=== PATIENT | male | born 1950 | race African-American/Black ===

== ENCOUNTER → 2016-08-31 10:05 | Outpatient (CLI) | payer MEDICARE | END | disposition home or self-care (01) | LOC: D.CT 10:05 | DX: R93.8 Abnormal findings on diagnostic imaging of other specified body structures (principal) ==

== ENCOUNTER 2017-05-29 16:50 | Emergency (ER) | payer MEDICARE ==
[2017-06-15 11:34] VITALS: BMI 22.6
== END 2017-05-29 19:59 | disposition home or self-care (01) ==
LOC: D.ER 16:50
DX: M25.521 Pain in right elbow (principal); M79.604 Pain in right leg

== ENCOUNTER 2017-06-14 20:29 | Inpatient (IN) | payer MEDICARE, MEDICAID ==
[~2017-06-14] VITALS: Ht 180.3 cm; Wt 77.1 kg
[2017-06-14 21:10] LABS: BASOPHILS 0.1 % (0-2); EOSINOPHILS 0.3 % (0-7); HEMOGLOBIN 12.3 g/dL (13.5-17.5); IMMATURE GRANULOCYTES 0.5 % (0-5); LYMPHOCYTES 21.7 % (15-50); MCH 30.1 pg (26.0-34.0); MCHC 34.2 g/dL (31.0-37.0); MEAN PLATELET VOLUME 9.6 fL (7.4-10.4); MONOCYTES 15.6 % (2-11); NEUTROPHILS 61.8 % (40-80); PLATELET COUNT 162 10x3/uL (130-400); RBC 4.09 10x6/uL (4.20-6.10); RDW 14.9 % (11.5-14.5); WBC 14.3 10x3/uL (4.8-10.8)
[2017-06-14 21:32] LABS: ALBUMIN 3.5 g/dL (3.4-5.0); ANION GAP 16.4 mmol/L (8-16); BILIRUBIN - TOTAL 0.33 mg/dL (0.2-1.3); CALCIUM 8.1 mg/dL (8.5-10.1); CARBON DIOXIDE 25.8 mmol/L (21.0-32.0); CREATININE - SERUM 1.1 mg/dL (0.6-1.3); MAGNESIUM - SERUM 1.7 mg/dL (1.8-2.4); POTASSIUM - SERUM 3.2 mmol/L (3.5-5.1); PROTEIN - SERUM 7.8 g/dL (6.4-8.2)
[2017-06-15] VITALS (27 sets, daily range): BP systolic 93–145; BP diastolic 51–94; Ht 180.3 cm; Wt 77.1 kg
[2017-06-15 03:59] LABS: BASOPHILS 0.1 % (0-2); EOSINOPHILS 0.2 % (0-7); HEMATOCRIT 31.8 % (42.0-54.0); HEMOGLOBIN 10.8 g/dL (13.5-17.5); IMMATURE GRANULOCYTES 0.4 % (0-5); LYMPHOCYTES 6.9 % (15-50); MCH 29.5 pg (26.0-34.0); MCV 86.9 fL (80.0-100.0); MEAN PLATELET VOLUME 9.3 fL (7.4-10.4); MONOCYTES 12.1 % (2-11); NEUTROPHILS 80.3 % (40-80); PLATELET COUNT 153 10x3/uL (130-400); RBC 3.66 10x6/uL (4.20-6.10); RDW 14.7 % (11.5-14.5); WBC 15.6 10x3/uL (4.8-10.8)
[2017-06-15 04:14] LABS: ALBUMIN 2.9 g/dL (3.4-5.0); ALKALINE PHOSPHATASE 135 U/L (46-116); ALT (SGPT) 16 U/L (10-68); CALC OSMOLALITY 269 mosm/kg (275-300); CALCIUM 7.7 mg/dL (8.5-10.1); CARBON DIOXIDE 23.3 mmol/L (21.0-32.0); CHLORIDE - SERUM 98 mmol/L (98-107); CREATININE - SERUM 0.9 mg/dL (0.6-1.3); POTASSIUM - SERUM 3.2 mmol/L (3.5-5.1); PROTEIN - SERUM 7.1 g/dL (6.4-8.2); SODIUM 136 mmol/L (136-145); UREA NITROGEN 12 mg/dL (7-18); eGFR NON AFRICAN AMERICAN 90 mL/min (90-120)
[2017-06-15 04:18] LABS: GLUCOSE 69 mg/dL (74-106)
[2017-06-16] VITALS (14 sets, daily range): BP systolic 109–143; BP diastolic 51–100
[2017-06-16 04:07] LABS: BASOPHILS 0.1 % (0-2); EOSINOPHILS 0.5 % (0-7); HEMATOCRIT 30.6 % (42.0-54.0); HEMOGLOBIN 10.4 g/dL (13.5-17.5); IMMATURE GRANULOCYTES 0.5 % (0-5); LYMPHOCYTES 12.9 % (15-50); MCH 29.6 pg (26.0-34.0); MCV 87.2 fL (80.0-100.0); MEAN PLATELET VOLUME 9.4 fL (7.4-10.4); MONOCYTES 7.9 % (2-11); NEUTROPHILS 78.1 % (40-80); PLATELET COUNT 179 10x3/uL (130-400); RBC 3.51 10x6/uL (4.20-6.10); RDW 14.8 % (11.5-14.5)
[2017-06-16 04:10] LABS: WBC 11.1 10x3/uL (4.8-10.8)
[2017-06-16 04:14] LABS: PROTIME 12.8 SECONDS (11.6-15.0)
[2017-06-16 04:19] LABS: ALBUMIN 2.6 g/dL (3.4-5.0); ANION GAP 15.6 mmol/L (8-16); BILIRUBIN - DIRECT 0.11 mg/dL (0.00-0.30); BILIRUBIN - INDIRECT 0.38 mg/dL (0.00-1.00); BILIRUBIN - TOTAL 0.49 mg/dL (0.2-1.3); CALCIUM 8.5 mg/dL (8.5-10.1); CARBON DIOXIDE 23.7 mmol/L (21.0-32.0); CREATININE - SERUM 1.1 mg/dL (0.6-1.3); POTASSIUM - SERUM 3.3 mmol/L (3.5-5.1); PROTEIN - SERUM 6.8 g/dL (6.4-8.2)
[2017-06-17 03:00] VITALS: BP 132/86
[2017-06-17 04:55] LABS: BASOPHILS 0.3 % (0-2); EOSINOPHILS 1.2 % (0-7); HEMATOCRIT 32.1 % (42.0-54.0); HEMOGLOBIN 10.7 g/dL (13.5-17.5); IMMATURE GRANULOCYTES 0.5 % (0-5); LYMPHOCYTES 23.5 % (15-50); MCH 29.4 pg (26.0-34.0); MCHC 33.3 g/dL (31.0-37.0); MCV 88.2 fL (80.0-100.0); MEAN PLATELET VOLUME 9.4 fL (7.4-10.4); MONOCYTES 9.1 % (2-11); NEUTROPHILS 65.4 % (40-80); RBC 3.64 10x6/uL (4.20-6.10); RDW 14.8 % (11.5-14.5)
[2017-06-17 04:59] LABS: PLATELET COUNT 223 10x3/uL (130-400); WBC 7.3 10x3/uL (4.8-10.8)
[2017-06-17 05:06] LABS: CALC OSMOLALITY 280 mosm/kg (275-300); CALCIUM 8.8 mg/dL (8.5-10.1); CARBON DIOXIDE 26.8 mmol/L (21.0-32.0); CHLORIDE - SERUM 104 mmol/L (98-107); POTASSIUM - SERUM 3.6 mmol/L (3.5-5.1); SODIUM 140 mmol/L (136-145); UREA NITROGEN 12 mg/dL (7-18); eGFR NON AFRICAN AMERICAN 80 mL/min (90-120)
[2017-06-17 05:10] LABS: GLUCOSE 141 mg/dL (74-106)
[2017-06-17 07:00] VITALS: BP 140/92
[2017-06-17 11:00] VITALS: BP 126/94
[2017-06-17 16:06] VITALS: BP 136/78
[2017-06-17 20:00] VITALS: BP 141/85
[2017-06-18] VITALS: BP 143/82
[2017-06-18 04:00] VITALS: BP 154/102
[2017-06-18 05:42] LABS: BASOPHILS 0.4 % (0-2); EOSINOPHILS 1.3 % (0-7); HEMOGLOBIN 10.6 g/dL (13.5-17.5); IMMATURE GRANULOCYTES 1.3 % (0-5); LYMPHOCYTES 26.8 % (15-50); MCH 29.4 pg (26.0-34.0); MCHC 33.1 g/dL (31.0-37.0); MCV 88.6 fL (80.0-100.0); MEAN PLATELET VOLUME 9.5 fL (7.4-10.4); MONOCYTES 11.7 % (2-11); NEUTROPHILS 58.5 % (40-80); RBC 3.61 10x6/uL (4.20-6.10); RDW 14.9 % (11.5-14.5); WBC 7.8 10x3/uL (4.8-10.8)
[2017-06-18 05:44] LABS: PLATELET COUNT 293 10x3/uL (130-400)
[2017-06-18 05:56] LABS: CALC OSMOLALITY 279 mosm/kg (275-300); CARBON DIOXIDE 26.3 mmol/L (21.0-32.0); CHLORIDE - SERUM 105 mmol/L (98-107); CREATININE - SERUM 0.9 mg/dL (0.6-1.3); GLUCOSE 99 mg/dL (74-106); SODIUM 140 mmol/L (136-145); UREA NITROGEN 14 mg/dL (7-18); eGFR NON AFRICAN AMERICAN 90 mL/min (90-120)
[2017-06-18 07:00] VITALS: BP 152/88
[2017-06-18 12:48] VITALS: BP 138/78
[2017-06-18 17:31] VITALS: BP 158/88
[2017-06-18 21:30] VITALS: BP 155/88
[2017-06-19] MEDS ORDERED: ULTRAM50 MG PO (04:19)
[2017-06-19] MEDS ORDERED: VOLTAREN75 MG PO (04:20)
[2017-06-19 06:11] VITALS: BP 149/75
[2017-06-19 08:00] VITALS: BP 159/86
[2017-06-19 11:50] VITALS: BP 147/82
== END 2017-06-19 14:39 | disposition home or self-care (01) | DRG 179 ==
LOC: D.ER 20:29 → D.ICU 23:56 → D.M2 06-17 13:16
PROVIDERS: Emergency Medicine; Family Medicine
DX: J69.0 Pneumonitis due to inhalation of food and vomit (principal); F10.129 Alcohol abuse with intoxication, unspecified; Y90.8 Blood alcohol level of 240 mg/100 ml or more; I10 Essential (primary) hypertension; D64.9 Anemia, unspecified; Z87.891 Personal history of nicotine dependence

== ENCOUNTER 2017-11-02 14:18 | Emergency (ER) | payer MEDICARE, MEDICAID ==
[2017-06-15 11:34] VITALS: BMI 22.6
[~2017-11-02 14:18] MED LIST: ULTRAM50 MG PO; VOLTAREN75 MG PO
[2017-11-02 14:54] LABS: HEMOGLOBIN 11.5 g/dL (13.5-17.5); MCH 31.1 pg (26.0-34.0); MCHC 34.8 g/dL (31.0-37.0); MCV 89.2 fL (80.0-100.0); MEAN PLATELET VOLUME 8.2 fL (7.4-10.4); RDW 17.3 % (11.5-14.5); WBC 4.6 10x3/uL (4.8-10.8)
[2017-11-02 14:57] LABS: PLATELET COUNT 208 10x3/uL (130-400)
[2017-11-02 15:08] LABS: INR 1.06 (0.85-1.17); PROTIME 13.4 SECONDS (11.6-15.0)
[2017-11-02 15:27] LABS: ALBUMIN 3.6 g/dL (3.4-5.0); ANION GAP 20.9 mmol/L (8-16); BILIRUBIN - TOTAL 0.17 mg/dL (0.2-1.3); CALCIUM 8.2 mg/dL (8.5-10.1); CARBON DIOXIDE 21.8 mmol/L (21.0-32.0); CREATININE - SERUM 1.1 mg/dL (0.6-1.3); MAGNESIUM - SERUM 1.7 mg/dL (1.8-2.4); POTASSIUM - SERUM 3.7 mmol/L (3.5-5.1); PROTEIN - SERUM 7.7 g/dL (6.4-8.2)
[2017-11-02 15:31] LABS: BASOPHILS 2 % (0-2); EOSINOPHILS 1 % (0-7); LYMPHOCYTES 60 % (15-50); MONOCYTES 1 % (2-11); NEUTROPHILS 34 % (40-80)
[2017-11-02 15:32] LABS: PLATELET ESTIMATE NORMAL; TARGET CELLS 2+
== END 2017-11-03 08:06 | disposition home or self-care (01) ==
LOC: D.ER 14:18
PROVIDERS: Emergency Medicine
DX: F10.10 Alcohol abuse, uncomplicated (principal); F17.200 Nicotine dependence, unspecified, uncomplicated

== ENCOUNTER 2017-11-10 13:29 | Emergency (ER) | payer MEDICARE, MEDICAID ==
[~2017-11-10] VITALS: Ht 180.3 cm; Wt 77.3 kg
[2017-11-10 13:30] VITALS: Ht 180.3 cm; Wt 77.3 kg
[2017-11-10 14:10] LABS: BASOPHILS 0.2 % (0-2); HEMATOCRIT 32.9 % (42.0-54.0); HEMOGLOBIN 11.8 g/dL (13.5-17.5); IMMATURE GRANULOCYTES 0.2 % (0-5); LYMPHOCYTES 31.8 % (15-50); MCH 31.7 pg (26.0-34.0); MCHC 35.9 g/dL (31.0-37.0); MCV 88.4 fL (80.0-100.0); MONOCYTES 8.2 % (2-11); NEUTROPHILS 58.6 % (40-80); RBC 3.72 10x6/uL (4.20-6.10); WBC 5.9 10x3/uL (4.8-10.8)
[2017-11-10 14:11] LABS: PLATELET COUNT 137 10x3/uL (130-400)
[2017-11-10 14:24] LABS: ALBUMIN 3.7 g/dL (3.4-5.0); ALKALINE PHOSPHATASE 149 U/L (46-116); ALT (SGPT) 70 U/L (10-68); CALC OSMOLALITY 277 mosm/kg (275-300); CALCIUM 8.5 mg/dL (8.5-10.1); CARBON DIOXIDE 26.9 mmol/L (21.0-32.0); CHLORIDE - SERUM 102 mmol/L (98-107); POTASSIUM - SERUM 4.1 mmol/L (3.5-5.1); PROTEIN - SERUM 7.7 g/dL (6.4-8.2); SODIUM 140 mmol/L (136-145); UREA NITROGEN 9 mg/dL (7-18); eGFR NON AFRICAN AMERICAN 79 mL/min (90-120)
[2017-11-10 14:26] LABS: GLUCOSE 93 mg/dL (74-106)
[2017-11-10 14:57] LABS: UDS - AMPHET NEGATIVE QUAL (NEGATIVE); UDS - BARB NEGATIVE QUAL (NEGATIVE); UDS - BENZO NEGATIVE QUAL (NEGATIVE); UDS - COCAINE NEGATIVE QUAL (NEGATIVE); UDS - OPIATE NEGATIVE QUAL (NEGATIVE); UDS - PCP NEGATIVE QUAL (NEGATIVE); UDS - THC NEGATIVE QUAL (NEGATIVE)
[2017-11-11 14:00] VITALS: BP 146/92
== END 2017-11-11 15:10 | disposition home or self-care (01) ==
LOC: D.ER 13:29
PROVIDERS: Family Medicine
DX: G40.909 Epilepsy, unspecified, not intractable, without status epilepticus (principal); F10.20 Alcohol dependence, uncomplicated

== ENCOUNTER 2018-01-26 10:27 | Emergency (ER) | payer MEDICARE, MEDICAID ==
[~2018-01-26] VITALS: Ht 180.3 cm; Wt 79.4 kg
[2018-01-26 10:31] VITALS: Ht 180.3 cm; Wt 79.4 kg
[2018-01-26] MEDS ORDERED: VOLTAREN100 GM TOPICAL (11:24)
[2018-01-26] MEDS ORDERED: ULTRAM50 MG PO (11:24)
[2018-01-26 11:58] VITALS: BP 175/96
== END 2018-01-26 12:00 | disposition home or self-care (01) ==
LOC: D.ER 10:27
DX: M25.561 Pain in right knee (principal); R01.1 Cardiac murmur, unspecified; M79.601 Pain in right arm

== ENCOUNTER 2018-02-23 11:44 | Emergency (ER) | payer MEDICARE, MEDICAID ==
[~2018-02-23] VITALS: Ht 180.3 cm; Wt 77.3 kg
[~2018-02-23 11:44] MED LIST changes: +VOLTAREN100 GM TOPICAL
[2018-02-23 12:24] VITALS: Ht 180.3 cm; Wt 77.3 kg
[2018-02-23] MEDS ORDERED: EC-NAPROSYN500 MG PO (13:24)
[2018-02-23 13:54] VITALS: BP 159/93
== END 2018-02-23 13:55 | disposition home or self-care (01) ==
LOC: D.ER 11:44
DX: M79.604 Pain in right leg (principal); G40.909 Epilepsy, unspecified, not intractable, without status epilepticus

== ENCOUNTER 2018-07-29 10:03 | Emergency (ER) | payer MEDICARE, MEDICAID ==
[~2018-07-29] VITALS: Ht 180.3 cm; Wt 81.8 kg
[~2018-07-29 10:03] MED LIST changes: +EC-NAPROSYN500 MG PO
[2018-07-29 10:29] VITALS: BP 186/89; Ht 180.3 cm; Wt 81.8 kg
[2018-07-29] MEDS ORDERED: ULTRAM50 MG PO (13:35)
== END 2018-07-29 16:50 | disposition home or self-care (01) ==
LOC: D.ER 10:03
DX: M79.661 Pain in right lower leg (principal)

== ENCOUNTER 2018-09-23 09:53 | Emergency (ER) | payer MEDICARE, MEDICAID ==
[~2018-09-23] VITALS: Ht 180.3 cm; Wt 77.3 kg
[2018-09-23 10:03] VITALS: BP 157/105; Ht 180.3 cm; Wt 77.3 kg
[2018-09-23] MEDS ORDERED: CLEOCIN HCL300 MG PO (10:31)
== END 2018-09-23 10:51 | disposition home or self-care (01) ==
LOC: D.ER 09:53
DX: T20.27XA Burn of second degree of neck, initial encounter (principal); X08.8XXA Exposure to other specified smoke, fire and flames, initial encounter

== ENCOUNTER 2018-10-29 21:01 | Inpatient (IN) | payer MEDICARE | END 2018-11-03 13:38 | disposition home or self-care (01) | DRG 312 | LOC: D.ER 21:01 → D.M3 23:31 | PROVIDERS: ADMIT Family Medicine | DX: R55 Syncope and collapse (principal); D64.9 Anemia, unspecified; I10 Essential (primary) hypertension; I25.10 Atherosclerotic heart disease of native coronary artery without angina pectoris; K76.0 Fatty (change of) liver, not elsewhere classified; R19.5 Other fecal abnormalities; X30.XXXA Exposure to excessive natural heat, initial encounter; F10.229 Alcohol dependence with intoxication, unspecified; Z87.891 Personal history of nicotine dependence ==

== ENCOUNTER 2019-03-09 10:52 | Emergency (ER) | payer MEDICARE, MEDICAID ==
[~2019-03-09] VITALS: Ht 180.3 cm; Wt 68.2 kg
[~2019-03-09 10:52] MED LIST changes: +ASPIRIN325 MG PO; +CHRONULAC30 ML PO; +CLEOCIN HCL300 MG PO; +PROTONIX40 MG PO
[2019-03-09 10:53] VITALS: Ht 180.3 cm; Wt 68.2 kg
[2019-03-09 11:29] LABS: BASOPHILS 0.2 % (0-2); EOSINOPHILS 0 % (0-7); HEMATOCRIT 35.7 % (42.0-54.0); HEMOGLOBIN 12.1 g/dL (13.5-17.5); IMMATURE GRANULOCYTES 0.2 % (0-5); LYMPHOCYTES 16.3 % (15-50); MCH 30.4 pg (26.0-34.0); MCHC 33.9 g/dL (31.0-37.0); MCV 89.7 fL (80.0-100.0); MEAN PLATELET VOLUME 9.2 fL (7.4-10.4); MONOCYTES 10.4 % (2-11); NEUTROPHILS 72.9 % (40-80); PLATELET COUNT 178 10x3/uL (130-400); RBC 3.98 10x6/uL (4.20-6.10); RDW 15.6 % (11.5-14.5); WBC 5.4 10x3/uL (4.8-10.8)
[2019-03-09 11:43] LABS: ALBUMIN 3.7 g/dL (3.4-5.0); ALKALINE PHOSPHATASE 199 U/L (46-116); ALT (SGPT) 69 U/L (10-68); BILIRUBIN - TOTAL 0.97 mg/dL (0.2-1.3); CALC OSMOLALITY 273 mosm/kg (275-300); CALCIUM 8.9 mg/dL (8.5-10.1); CARBON DIOXIDE 27.6 mmol/L (21.0-32.0); CHLORIDE - SERUM 97 mmol/L (98-107); CREATININE - SERUM 1.2 mg/dL (0.6-1.3); GLUCOSE 120 mg/dL (74-106); POTASSIUM - SERUM 4.9 mmol/L (3.5-5.1); PROTEIN - SERUM 8.3 g/dL (6.4-8.2); SODIUM 137 mmol/L (136-145); UREA NITROGEN 11 mg/dL (7-18); eGFR NON AFRICAN AMERICAN 64 mL/min (90-120)
[2019-03-09 11:48] LABS: MAGNESIUM - SERUM 1.6 mg/dL (1.8-2.4); TROPONIN-I < 0.017 ng/mL (0.000-0.060)
[2019-03-09 12:20] LABS: APPEARANCE CLEAR (CLEAR); BILIRUBIN NEGATIVE (NEGATIVE); COLOR YELLOW (YELLOW); GLUCOSE NEGATIVE (NEGATIVE); KETONE LARGE mg/dL (NEGATIVE); NITRITE NEGATIVE (NEGATIVE); PROTEIN 1+ mg/dL (NEGATIVE); SPECIFIC GRAVITY 1.025 (1.005-1.020); UROBILINOGEN NORMAL (NORMAL)
[2019-03-09 12:21] LABS: BACTERIA FEW /hpf (NEGATIVE); EPITHELIAL CELLS 0-5 /hpf (0-5); RED CELLS - URINE 0-5 /hpf (0-5); WHITE CELLS - URINE 0-5 /hpf (NEGATIVE)
[2019-03-09 12:23] LABS: UDS - AMPHET NEGATIVE QUAL (NEGATIVE); UDS - BARB NEGATIVE QUAL (NEGATIVE); UDS - BENZO NEGATIVE QUAL (NEGATIVE); UDS - COCAINE NEGATIVE QUAL (NEGATIVE); UDS - OPIATE NEGATIVE QUAL (NEGATIVE); UDS - PCP NEGATIVE QUAL (NEGATIVE); UDS - THC NEGATIVE QUAL (NEGATIVE)
[2019-03-09 15:18] VITALS: BP 128/74
== END 2019-03-09 15:19 | disposition home or self-care (01) ==
LOC: D.ER 10:52
PROVIDERS: Emergency Medicine
DX: E46 Unspecified protein-calorie malnutrition (principal); F10.10 Alcohol abuse, uncomplicated; R55 Syncope and collapse

== ENCOUNTER 2019-11-05 14:12 | Inpatient (IN) | payer OTHER, MEDICAID ==
[~2019-11-05] VITALS: Ht 180.3 cm; Wt 90.9 kg
[2019-11-06 03:40] VITALS: Ht 180.3 cm; Wt 90.9 kg
[2019-11-07 17:38] VITALS: BP 160/86
== END 2019-11-07 20:28 | disposition home or self-care (01) | DRG 64 ==
LOC: D.ER 14:12 → D.MS 16:33
PROVIDERS: ADMIT Family Medicine; ATTEND Family Medicine
DX: I63.9 Cerebral infarction, unspecified (principal); R40.2222 Coma scale, best verbal response, incomprehensible words, at arrival to emergency department; N17.9 Acute kidney failure, unspecified; F10.129 Alcohol abuse with intoxication, unspecified; Y90.8 Blood alcohol level of 240 mg/100 ml or more; D64.9 Anemia, unspecified; R40.2363 Coma scale, best motor response, obeys commands, at hospital admission; R40.2143 Coma scale, eyes open, spontaneous, at hospital admission

== ENCOUNTER 2020-01-13 15:57 | Inpatient (IN) | payer MEDICARE, MEDICAID ==
[~2020-01-13] VITALS: Ht 180.3 cm; Wt 72.0 kg
[2020-01-13 16:05] VITALS: Ht 180.3 cm; Wt 72.0 kg
[2020-01-13 16:36] VITALS: BP 139/91
[2020-01-13 16:47] LABS: BASOPHILS 0.1 % (0-2); EOSINOPHILS 0 % (0-7); HEMATOCRIT 41.1 % (42.0-54.0); HEMOGLOBIN 14.1 g/dL (13.5-17.5); IMMATURE GRANULOCYTES 0.3 % (0-5); LYMPHOCYTES 9.7 % (15-50); MCH 30.7 pg (26.0-34.0); MCHC 34.3 g/dL (31.0-37.0); MCV 89.3 fL (80.0-100.0); MONOCYTES 8.4 % (2-11); NEUTROPHILS 81.5 % (40-80); PLATELET COUNT 143 10x3/uL (130-400); RDW 13.2 % (11.5-14.5); WBC 10.2 10x3/uL (4.8-10.8)
[2020-01-13 17:03] LABS: CALC OSMOLALITY 269 mosm/kg (275-300); CALCIUM 9.2 mg/dL (8.5-10.1); CARBON DIOXIDE 27.5 mmol/L (21.0-32.0); CHLORIDE - SERUM 94 mmol/L (98-107); CREATININE - SERUM 1.3 mg/dL (0.6-1.3); GLUCOSE 116 mg/dL (74-106); POTASSIUM - SERUM 5.2 mmol/L (3.5-5.1); SODIUM 134 mmol/L (136-145); UREA NITROGEN 14 mg/dL (7-18); eGFR NON AFRICAN AMERICAN 58 mL/min (90-120)
[2020-01-13 17:08] LABS: APTT 28.6 SECONDS (22.8-39.4); INR 0.9 (0.85-1.17); PROTIME 12.1 SECONDS (11.6-15.0)
[2020-01-13 17:19] LABS: ALKALINE PHOSPHATASE 180 U/L (30-120); ALT (SGPT) 24 U/L (10-68); BILIRUBIN - TOTAL 1.26 mg/dL (0.2-1.3); C-REACTIVE PROTEIN 14.2 mg/dL (0.0-0.9); CKMB 1.2 U/L (0.0-3.6); CREATINE KINASE 183 UL (21-232); MAGNESIUM - SERUM 2.1 mg/dL (1.8-2.4); PROTEIN - SERUM 9.2 g/dL (6.4-8.2); THYROID STIMULATING HORMONE 0.86 uIU/mL (0.36-3.74)
[2020-01-13 17:22] LABS: TROPONIN-I < 0.017 ng/mL (0.000-0.060)
--- NOTE | 2020-01-13 17:50 | NUR ---
PT PRESENTING WITH SZ LIKE ACTIVITY LEFT GAZE, GRINDING TEETH THEN BECOMES VERY CONFUSED, TRYING TO GET OUT OF BED AND PULLING AT ALL LINES, LOSS PREVENTION RESEARCH ENGINEER NOTIFIED TO REVIEW EVENT MONITOR
[2020-01-13 18:18] LABS: BILIRUBIN NEGATIVE (NEGATIVE); GLUCOSE NEGATIVE (NEGATIVE); KETONE SMALL mg/dL (NEGATIVE); NITRITE NEGATIVE (NEGATIVE); UROBILINOGEN NORMAL (NORMAL)
[2020-01-13 18:26] LABS: UDS - AMPHET NEGATIVE QUAL (NEGATIVE); UDS - BARB NEGATIVE QUAL (NEGATIVE); UDS - BENZO NEGATIVE QUAL (NEGATIVE); UDS - COCAINE NEGATIVE QUAL (NEGATIVE); UDS - OPIATE NEGATIVE QUAL (NEGATIVE); UDS - PCP NEGATIVE QUAL (NEGATIVE); UDS - THC NEGATIVE QUAL (NEGATIVE)
--- NOTE | 2020-01-13 19:00 | NUR ---
PT ATTEMPTING TO GET OOB, ALL MONITORS PULLED OFF AND IN FLOOR. PTS IV STRETCHED BUT INTACT. INSTR TO STAY IN BED AND RATIONALE
--- NOTE | 2020-01-13 19:29 | NUR ---
REPORT TO VERNON KOEHLER
--- NOTE | 2020-01-14 03:25 | NUR ---
PT' DAUGHTER CALLED TO CHECK ON PT STATUS. PT RESTING AT THIS TIME WITH EYES CLOSED RR EVEN AND UNLABORED. VITALS STABLE AT THIS TIME. PT DAUGHTER STATES THAT PT'S LIVE IN GIRLFRIEND INFORMED HER THAT PT HAD AN EPISODE 1 1/2 WK'S AGO WHERE PT WAS SHAKING, EYES ROLLED BACK, AND UNABLE TO BREATH. NO EMS SERVICE ALERTED. DAUGHTER WANTED TO RELAY INFORMATION. BED ALARMS IN PLACE, CALL LIGHT WITHIN REACH. WILL CONTINUE TO MONITOR. NO S/S OF DISTRESS AT THIS TIME.
[2020-01-14] MEDS ORDERED: CELEBREX200 MG PO (03:46)
--- NOTE | 2020-01-14 07:50 | NUR ---
REPORT RECIEVED. PT SITTING UP IN BED. RR EVEN AND UNLABORED ON RA. PT HAS A L FA PIV INFUSING A BANANA BAG @ 125. PT IS NPO PENDING A SWALLOW EVAL. BED LOCKED AND IN LOWEST POSITION, CALL LIGHT WITHIN REACH. WILL CTM
[2020-01-14 08:41] VITALS: BP 120/78
[2020-01-14 10:35] VITALS: BP 152/81
[2020-01-14 10:45] LABS: BASOPHILS 0.1 % (0-2); EOSINOPHILS 0.6 % (0-7); HEMOGLOBIN 11.7 g/dL (13.5-17.5); IMMATURE GRANULOCYTES 0.3 % (0-5); LYMPHOCYTES 17.7 % (15-50); MCH 30.6 pg (26.0-34.0); MCHC 34.4 g/dL (31.0-37.0); MEAN PLATELET VOLUME 9.8 fL (7.4-10.4); MONOCYTES 14.1 % (2-11); NEUTROPHILS 67.2 % (40-80); PLATELET COUNT 126 10x3/uL (130-400); RBC 3.82 10x6/uL (4.20-6.10)
[2020-01-14 10:55] LABS: ANION GAP 11.7 mmol/L (8-16); CALCIUM 8.9 mg/dL (8.5-10.1); CARBON DIOXIDE 28.3 mmol/L (21.0-32.0); CREATININE - SERUM 1.2 mg/dL (0.6-1.3); MAGNESIUM - SERUM 2.3 mg/dL (1.8-2.4); PHOSPHOROUS 2.4 mg/dL (2.5-4.9)
--- NOTE | 2020-01-14 12:20 | NUR ---
I have reviewed this patient and I concur with the Shift Assessment completed by the Licensed Practical Nurse today this shift.
--- NOTE | 2020-01-14 13:05 | NUR ---
I have reviewed this patient and I concur with the Shift Assessment completed by the Licensed Practical Nurse today this shift.
[2020-01-14 16:14] VITALS: BP 122/78
--- NOTE | 2020-01-14 19:30 | NUR ---
PT IN BED, AAO X 2, RESP EVEN AND UNLABORED, NO DISTRESS NOTED, CL IN REACH,S R UP X 2.
[2020-01-14 20:00] VITALS: BP 131/79
[2020-01-15] VITALS: BP 124/86
[2020-01-15 06:35] LABS: BASOPHILS 0 % (0-2); EOSINOPHILS 0 % (0-7); HEMATOCRIT 34.5 % (42.0-54.0); HEMOGLOBIN 11.9 g/dL (13.5-17.5); IMMATURE GRANULOCYTES 0.1 % (0-5); LYMPHOCYTES 10.2 % (15-50); MCH 30.6 pg (26.0-34.0); MCHC 34.5 g/dL (31.0-37.0); MCV 88.7 fL (80.0-100.0); MEAN PLATELET VOLUME 9.9 fL (7.4-10.4); MONOCYTES 2.5 % (2-11); NEUTROPHILS 87.2 % (40-80); PLATELET COUNT 131 10x3/uL (130-400); RBC 3.89 10x6/uL (4.20-6.10); WBC 7.7 10x3/uL (4.8-10.8)
[2020-01-15 06:45] LABS: CALCIUM 9.2 mg/dL (8.5-10.1); CARBON DIOXIDE 26.2 mmol/L (21.0-32.0); CREATININE - SERUM 1.3 mg/dL (0.6-1.3); MAGNESIUM - SERUM 2.2 mg/dL (1.8-2.4); PHOSPHOROUS 2.4 mg/dL (2.5-4.9); POTASSIUM - SERUM 4.2 mmol/L (3.5-5.1)
[2020-01-15 08:58] VITALS: BP 168/93
[2020-01-15 11:24] VITALS: BP 160/86
[2020-01-15] MEDS ORDERED: VENTOLIN HFA [SP8 GM INH (12:12)
[2020-01-15] MEDS ORDERED: AZITHROMYCIN500 MG PO (12:12)
== END 2020-01-15 14:22 | disposition home or self-care (01) | DRG 193 ==
LOC: D.ER 15:57 → D.M2 20:13
PROVIDERS: Family Medicine; ADMIT Family Medicine; ATTEND Family Medicine
DX: J18.9 Pneumonia, unspecified organism (principal); G93.41 Metabolic encephalopathy; E87.1 Hypo-osmolality and hyponatremia; Z86.73 Personal history of transient ischemic attack (TIA), and cerebral infarction without residual deficits; E78.5 Hyperlipidemia, unspecified; F10.20 Alcohol dependence, uncomplicated; Y90.0 Blood alcohol level of less than 20 mg/100 ml

== ENCOUNTER 2020-03-05 11:35 | Emergency (ER) | payer MEDICARE, MEDICAID ==
[~2020-03-05] VITALS: Ht 180.3 cm; Wt 90.9 kg
[~2020-03-05 11:35] MED LIST changes: +AZITHROMYCIN500 MG PO; +CELEBREX200 MG PO; +VENTOLIN HFA [SP8 GM INH
[2020-03-05 11:47] VITALS: Ht 180.3 cm; Wt 90.9 kg
[2020-03-05 14:00] VITALS: BP 120/73
== END 2020-03-05 14:00 | disposition home or self-care (01) ==
LOC: D.ER 11:35
DX: S01.81XA Laceration without foreign body of other part of head, initial encounter (principal); E78.5 Hyperlipidemia, unspecified; Z86.73 Personal history of transient ischemic attack (TIA), and cerebral infarction without residual deficits; W19.XXXA Unspecified fall, initial encounter; Y93.9 Activity, unspecified; Y92.9 Unspecified place or not applicable

== ENCOUNTER 2020-08-07 15:10 | Observation (INO) | payer MEDICARE, MEDICAID ==
[~2020-08-07] VITALS: Ht 177.8 cm; Wt 81.8 kg
[2020-08-07 15:33] LABS: BILIRUBIN NEGATIVE (NEGATIVE); KETONE NEGATIVE (NEGATIVE); NITRITE NEGATIVE (NEGATIVE); UROBILINOGEN NORMAL mg/dL (< 2)
[2020-08-07 15:41] LABS: UDS - AMPHET NEGATIVE QUAL (NEGATIVE); UDS - BARB NEGATIVE QUAL (NEGATIVE); UDS - BENZO NEGATIVE QUAL (NEGATIVE); UDS - COCAINE NEGATIVE QUAL (NEGATIVE); UDS - OPIATE NEGATIVE QUAL (NEGATIVE); UDS - PCP NEGATIVE QUAL (NEGATIVE); UDS - THC NEGATIVE QUAL (NEGATIVE)
[2020-08-07 15:48] LABS: BASOPHILS 0.5 % (0-2); HEMATOCRIT 33.2 % (42.0-54.0); HEMOGLOBIN 11.4 g/dL (13.5-17.5); IMMATURE GRANULOCYTES 0.2 % (0-5); LYMPHOCYTE ABS# 2.64 10x3/uL (1.32-3.57); LYMPHOCYTES 30.8 % (15-50); MCHC 34.3 g/dL (31.0-37.0); MCV 87.4 fL (80.0-100.0); MEAN PLATELET VOLUME 8.5 fL (7.4-10.4); MONOCYTES 11.3 % (2-11); NEUTROPHIL ABS# 4.82 10x3/uL (1.78-5.38); NEUTROPHILS 56.2 % (40-80); PLATELET COUNT 234 10x3/uL (130-400); RDW 13.1 % (11.5-14.5); WBC 8.6 10x3/uL (4.8-10.8)
[2020-08-07 16:08] LABS: ANION GAP 15.2 mmol/L (8-16); CALCIUM 8.1 mg/dL (8.5-10.1); CARBON DIOXIDE 23.6 mmol/L (21.0-32.0); CREATININE - SERUM 1.2 mg/dL (0.6-1.3); POTASSIUM - SERUM 3.8 mmol/L (3.5-5.1)
[2020-08-07 16:38] LABS: ALBUMIN 3.5 g/dL (3.4-5.0); BILIRUBIN - TOTAL 0.16 mg/dL (0.2-1.3); MAGNESIUM - SERUM 1.7 mg/dL (1.8-2.4); PROTEIN - SERUM 7.9 g/dL (6.4-8.2)
--- NOTE | 2020-08-07 18:58 | NUR ---
PT TO FLOOR FROM ER VIA BED. SITUATED AND ORIENTED TO ROOM. BED RAILS X3, CALL LIGHT WITHIN REACH.
[2020-08-07 20:57] VITALS: BP 128/86
[2020-08-07 23:04] LABS: CALCIUM 7.8 mg/dL (8.5-10.1); CARBON DIOXIDE 26.9 mmol/L (21.0-32.0); CREATININE - SERUM 1.2 mg/dL (0.6-1.3); MAGNESIUM - SERUM 2.1 mg/dL (1.8-2.4); PHOSPHOROUS 3.7 mg/dL (2.5-4.9)
[2020-08-07 23:05] LABS: ANION GAP 11.5 mmol/L (8-16); POTASSIUM - SERUM 4.4 mmol/L (3.5-5.1)
--- NOTE | 2020-08-07 23:16 | NUR ---
PT IN BED CONFUSED TO PLACE AND TIME,SLURRED SPEECH WHEN TALKING. PT WAS ADVICE TO USE CALL LIGTH AND NOT TO GET UP ON HIS OWN. WILL CONT TO MONITOR.
[2020-08-08 00:22] VITALS: Ht 177.8 cm; Wt 81.8 kg
[2020-08-08 04:00] VITALS: BP 140/83
[2020-08-08 05:14] LABS: BASOPHILS 0.5 % (0-2); EOSINOPHILS 1.9 % (0-7); HEMATOCRIT 34.5 % (42.0-54.0); HEMOGLOBIN 11.6 g/dL (13.5-17.5); IMMATURE GRANULOCYTES 0.5 % (0-5); LYMPHOCYTE ABS# 1.75 10x3/uL (1.32-3.57); LYMPHOCYTES 40.6 % (15-50); MCH 30.2 pg (26.0-34.0); MCHC 33.6 g/dL (31.0-37.0); MEAN PLATELET VOLUME 9.1 fL (7.4-10.4); MONOCYTES 17.4 % (2-11); NEUTROPHIL ABS# 1.69 10x3/uL (1.78-5.38); NEUTROPHILS 39.1 % (40-80); PLATELET COUNT 212 10x3/uL (130-400); RBC 3.84 10x6/uL (4.20-6.10); RDW 13.5 % (11.5-14.5)
[2020-08-08 05:21] LABS: MCV 89.8 fL (80.0-100.0); WBC 4.3 10x3/uL (4.8-10.8)
[2020-08-08 05:53] LABS: ALBUMIN 3.1 g/dL (3.4-5.0); ANION GAP 14.7 mmol/L (8-16); BILIRUBIN - TOTAL 0.15 mg/dL (0.2-1.3); CALCIUM 8.2 mg/dL (8.5-10.1); CARBON DIOXIDE 24.3 mmol/L (21.0-32.0); CREATININE - SERUM 1.1 mg/dL (0.6-1.3); MAGNESIUM - SERUM 2.3 mg/dL (1.8-2.4); PHOSPHOROUS 3.8 mg/dL (2.5-4.9)
[2020-08-08 09:27] VITALS: BP 164/87
[2020-08-08 15:22] VITALS: BP 142/86
[2020-08-08 18:00] VITALS: BP 140/85
--- NOTE | 2020-08-08 19:00 | NUR ---
BEDSIDE REPORT RECEIVED AND CARE OF PT ASSUMED. PT LYING IN LOW AMIN'S POSITION WITH EYES CLOSED. IV TO RIGHT FA PATENT WITH NS INFUSING AT 100 ML/HR. EMPTIED 600 ML YELLOW URINE FROM URINAL. GAVE FRESH ICE WATER. WILL MONITOR FOR NEEDS.
[2020-08-08 20:00] VITALS: BP 137/76
--- NOTE | 2020-08-08 20:24 | NUR ---
HS MEDICATIONS GIVEN. WILL CONTINUE TO MONITOR FOR NEEDS.
[2020-08-09 04:00] VITALS: BP 150/80
--- NOTE | 2020-08-09 04:55 | NUR ---
TOOK PT'S CLOTHES TO REHAB TO [facility] PER HIS REQUEST.
--- NOTE | 2020-08-09 05:10 | NUR ---
PT SHOWERED AND ALL LINENS AND GOWN CHANGED.
--- NOTE | 2020-08-09 07:20 | NUR ---
REC'D IN BED WITH EYES CLOSED EASILY TO AROUSED WHEN NAME IS CALLED. RESP EVEN AND UNLABORED WITH NO DISTRESS NOTED. CAN EXPRESS NEEDS AND WANTS. NO C/O NOTED OR VOICED. ASSESSMENT COMPLETED. C/L IN REACH AT BEDSIDE.
--- NOTE | 2020-08-09 07:36 | NUR ---
LYING IN BED,WITHOUT DISTRESS.CALL LIGHT IN REACH
[2020-08-09 08:29] VITALS: BP 159/85
[2020-08-09 09:23] LABS: BASOPHILS 0.5 % (0-2); EOSINOPHILS 3.3 % (0-7); HEMATOCRIT 29.3 % (42.0-54.0); HEMOGLOBIN 9.8 g/dL (13.5-17.5); LYMPHOCYTE ABS# 1.03 10x3/uL (1.32-3.57); LYMPHOCYTES 25.8 % (15-50); MCH 29.5 pg (26.0-34.0); MCHC 33.4 g/dL (31.0-37.0); MCV 88.3 fL (80.0-100.0); MEAN PLATELET VOLUME 8.9 fL (7.4-10.4); MONOCYTES 14.3 % (2-11); NEUTROPHIL ABS# 2.25 10x3/uL (1.78-5.38); NEUTROPHILS 56.1 % (40-80); PLATELET COUNT 217 10x3/uL (130-400); RBC 3.32 10x6/uL (4.20-6.10)
[2020-08-09 09:33] LABS: INR 1.38 (0.85-1.17); PROTIME 15.7 SECONDS (11.6-15.0)
[2020-08-09 12:43] VITALS: BP 151/83
[2020-08-09 12:49] LABS: CALCIUM 8.4 mg/dL (8.5-10.1); CARBON DIOXIDE 26.4 mmol/L (21.0-32.0); CREATININE - SERUM 1.1 mg/dL (0.6-1.3)
[2020-08-09 12:50] LABS: ANION GAP 12.4 mmol/L (8-16); PHOSPHOROUS 2.5 mg/dL (2.5-4.9); POTASSIUM - SERUM 3.8 mmol/L (3.5-5.1)
[2020-08-09 16:23] VITALS: BP 162/98
--- NOTE | 2020-08-09 17:03 | NUR ---
PT DC AT THIS TIME VOICES UNDERSTANDING OF DC ORDERS. IV DC. STABLE CONDITION UPON DEPATURE WITH ALL PERSONAL BELONGINGS.
== END 2020-08-09 17:06 | disposition home or self-care (01) ==
LOC: D.ER 15:10 → OBSVTIME 16:45 → D.MS 16:45
PROVIDERS: Family Medicine; ADMIT Family Medicine; ATTEND Family Medicine
DX: F10.129 Alcohol abuse with intoxication, unspecified (principal); G93.41 Metabolic encephalopathy; E87.1 Hypo-osmolality and hyponatremia; D64.9 Anemia, unspecified; E78.5 Hyperlipidemia, unspecified; Z86.73 Personal history of transient ischemic attack (TIA), and cerebral infarction without residual deficits; E83.42 Hypomagnesemia; Y90.8 Blood alcohol level of 240 mg/100 ml or more

== ENCOUNTER 2020-09-03 00:55 | Emergency (ER) | payer MEDICARE, MEDICAID ==
[~2020-09-03] VITALS: Ht 177.8 cm; Wt 86.4 kg
[2020-09-03 00:59] VITALS: Ht 177.8 cm; Wt 86.4 kg
[2020-09-03 01:15] LABS: BASOPHILS 0.5 % (0-2); EOSINOPHILS 1.5 % (0-7); HEMATOCRIT 38.2 % (42.0-54.0); HEMOGLOBIN 12.6 g/dL (13.5-17.5); IMMATURE GRANULOCYTES 0.3 % (0-5); LYMPHOCYTE ABS# 3.13 10x3/uL (1.32-3.57); LYMPHOCYTES 47.3 % (15-50); MCH 30.1 pg (26.0-34.0); MCV 91.4 fL (80.0-100.0); MEAN PLATELET VOLUME 9.4 fL (7.4-10.4); NEUTROPHIL ABS# 2.61 10x3/uL (1.78-5.38); NEUTROPHILS 39.4 % (40-80); PLATELET COUNT 253 10x3/uL (130-400); RBC 4.18 10x6/uL (4.20-6.10); RDW 14.4 % (11.5-14.5); WBC 6.6 10x3/uL (4.8-10.8)
[2020-09-03 01:21] LABS: APTT 27.8 SECONDS (22.8-39.4); INR 1.07 (0.85-1.17); PROTIME 12.9 SECONDS (11.6-15.0)
[2020-09-03 01:22] LABS: CALC OSMOLALITY 276 mosm/kg (275-300); CALCIUM 8.7 mg/dL (8.5-10.1); CARBON DIOXIDE 22.3 mmol/L (21.0-32.0); CHLORIDE - SERUM 102 mmol/L (98-107); CREATININE - SERUM 1.2 mg/dL (0.6-1.3); GLUCOSE 75 mg/dL (74-106); SODIUM 139 mmol/L (136-145); UREA NITROGEN 12 mg/dL (7-18); eGFR NON AFRICAN AMERICAN 64 mL/min (90-120)
[2020-09-03 01:35] LABS: ALBUMIN 3.9 g/dL (3.4-5.0); ALKALINE PHOSPHATASE 143 U/L (30-120); ALT (SGPT) 13 U/L (10-68); BILIRUBIN - TOTAL 0.24 mg/dL (0.2-1.3); CREATINE KINASE 172 UL (21-232); LIPASE 73 U/L (73-393); MAGNESIUM - SERUM 2.2 mg/dL (1.8-2.4); PRO BNP 134 pg/mL (0-125); PROTEIN - SERUM 8.6 g/dL (6.4-8.2); TROPONIN-I < 0.017 ng/mL (0.000-0.060)
[2020-09-03 03:08] LABS: BILIRUBIN NEGATIVE (NEGATIVE); KETONE NEGATIVE (NEGATIVE); NITRITE NEGATIVE (NEGATIVE); UROBILINOGEN NORMAL mg/dL (< 2)
[2020-09-03 03:17] LABS: UDS - AMPHET NEGATIVE QUAL (NEGATIVE); UDS - BARB NEGATIVE QUAL (NEGATIVE); UDS - BENZO NEGATIVE QUAL (NEGATIVE); UDS - COCAINE NEGATIVE QUAL (NEGATIVE); UDS - OPIATE NEGATIVE QUAL (NEGATIVE); UDS - PCP NEGATIVE QUAL (NEGATIVE); UDS - THC NEGATIVE QUAL (NEGATIVE)
[2020-09-03 12:00] VITALS: BP 106/67
== END 2020-09-03 16:39 | disposition home or self-care (01) ==
LOC: D.ER 00:55
PROVIDERS: Family Medicine
DX: F10.129 Alcohol abuse with intoxication, unspecified (principal); Y90.8 Blood alcohol level of 240 mg/100 ml or more; Z86.73 Personal history of transient ischemic attack (TIA), and cerebral infarction without residual deficits; E78.5 Hyperlipidemia, unspecified

== ENCOUNTER 2020-11-05 13:27 | Emergency (ER) | payer MEDICARE, MEDICAID ==
[~2020-11-05] VITALS: Ht 177.8 cm; Wt 75.0 kg
[2020-11-05 13:33] VITALS: Ht 177.8 cm; Wt 75.0 kg
[2020-11-05 14:28] LABS: BASOPHILS 0.6 % (0-2); MEAN PLATELET VOLUME 7.4 fL (7.4-10.4)
[2020-11-05 14:29] LABS: EOSINOPHILS 0.7 % (0-7); HEMATOCRIT 33.9 % (42.0-54.0); HEMOGLOBIN 11.2 g/dL (13.5-17.5); LYMPHOCYTES 15.1 % (15-50); MCH 30.8 pg (26.0-34.0); MCV 93.3 fL (80.0-100.0); MONOCYTES 8.3 % (2-11); NEUTROPHILS 75.3 % (40-80); PLATELET COUNT 204 10x3/uL (130-400); RBC 3.64 10x6/uL (4.20-6.10); RDW 16.3 % (11.5-14.5); WBC 10.6 10x3/uL (4.8-10.8)
[2020-11-05 14:40] LABS: ANION GAP 13.6 mmol/L (8-16); CALCIUM 8.4 mg/dL (8.5-10.1); CARBON DIOXIDE 25.6 mmol/L (21.0-32.0); CREATININE - SERUM 1.1 mg/dL (0.6-1.3); POTASSIUM - SERUM 4.2 mmol/L (3.5-5.1)
[2020-11-05 15:00] LABS: ALBUMIN 3.7 g/dL (3.4-5.0); BILIRUBIN - TOTAL 0.47 mg/dL (0.2-1.3); PROTEIN - SERUM 8.4 g/dL (6.4-8.2)
[2020-11-05] MEDS ORDERED: AUGMENTIN 875-11 TAB PO (16:06)
[2020-11-05] MEDS ORDERED: ERYTHROMYCIN OPT1 GM EACH EYE (16:06)
== END 2020-11-05 16:17 | disposition home or self-care (01) ==
LOC: D.ER 13:27
PROVIDERS: Emergency Medicine
DX: R22.0 Localized swelling, mass and lump, head (principal); L03.211 Cellulitis of face; H10.9 Unspecified conjunctivitis; Z86.73 Personal history of transient ischemic attack (TIA), and cerebral infarction without residual deficits; E78.5 Hyperlipidemia, unspecified

== ENCOUNTER 2020-11-27 12:02 | Emergency (ER) | payer MEDICARE, MEDICAID ==
[~2020-11-27] VITALS: Ht 177.8 cm; Wt 81.8 kg
[~2020-11-27 12:02] MED LIST changes: +AUGMENTIN 875-11 TAB PO; +ERYTHROMYCIN OPT1 GM EACH EYE
[2020-11-27 12:09] VITALS: Ht 177.8 cm; Wt 81.8 kg
[2020-11-27 13:51] LABS: BASOPHILS 1.2 % (0-2); EOSINOPHILS 1.5 % (0-7); HEMATOCRIT 34.8 % (42.0-54.0); HEMOGLOBIN 11.4 g/dL (13.5-17.5); LYMPHOCYTES 21.5 % (15-50); MCH 30.5 pg (26.0-34.0); MCHC 32.6 g/dL (31.0-37.0); MCV 93.7 fL (80.0-100.0); MEAN PLATELET VOLUME 7.9 fL (7.4-10.4); MONOCYTES 13.7 % (2-11); NEUTROPHILS 62.1 % (40-80); RBC 3.72 10x6/uL (4.20-6.10); RDW 15.7 % (11.5-14.5); WBC 6.6 10x3/uL (4.8-10.8)
[2020-11-27 13:53] LABS: PLATELET COUNT 263 10x3/uL (130-400)
[2020-11-27 14:01] LABS: APTT 27.9 SECONDS (22.8-39.4); INR 1.05 (0.85-1.17); PROTIME 12.7 SECONDS (11.6-15.0)
[2020-11-27 14:02] LABS: D-DIMER-QUANTITATIVE 0.82 ug/mLFEU (0.20-0.54)
[2020-11-27 14:07] LABS: CALC OSMOLALITY 288 mosm/kg (275-300); CALCIUM 9.2 mg/dL (8.5-10.1); CHLORIDE - SERUM 107 mmol/L (98-107); CREATININE - SERUM 1.2 mg/dL (0.6-1.3); GLUCOSE 88 mg/dL (74-106); POTASSIUM - SERUM 3.8 mmol/L (3.5-5.1); SODIUM 144 mmol/L (136-145); UREA NITROGEN 21 mg/dL (7-18); eGFR NON AFRICAN AMERICAN 64 mL/min (90-120)
[2020-11-27 14:10] LABS: BILIRUBIN NEGATIVE (NEGATIVE); KETONE NEGATIVE mg/dL (< 1+); NITRITE NEGATIVE (NEGATIVE); PH 6.5 (5.0-8.0); UROBILINOGEN NORMAL mg/dL (< 2)
[2020-11-27 14:33] LABS: ALKALINE PHOSPHATASE 93 U/L (30-120); ALT (SGPT) 23 U/L (10-68); BILIRUBIN - TOTAL 0.42 mg/dL (0.2-1.3); CKMB 1.5 U/L (0.0-3.6); CREATINE KINASE 137 UL (21-232); MAGNESIUM - SERUM 1.7 mg/dL (1.8-2.4); PROTEIN - SERUM 8.4 g/dL (6.4-8.2); THYROID STIMULATING HORMONE 1.72 uIU/mL (0.36-3.74); TROPONIN-I < 0.017 ng/mL (0.000-0.060)
[2020-11-27 16:34] VITALS: BP 140/80
== END 2020-11-27 16:35 | disposition home or self-care (01) ==
LOC: D.ER 12:02
PROVIDERS: Family Medicine
DX: H53.9 Unspecified visual disturbance (principal); S06.5X9A Traumatic subdural hemorrhage with loss of consciousness of unspecified duration, initial encounter; E78.5 Hyperlipidemia, unspecified; Z86.73 Personal history of transient ischemic attack (TIA), and cerebral infarction without residual deficits; X58.XXXA Exposure to other specified factors, initial encounter